=== PATIENT | female | born 1945 | race Caucasian/White ===

== ENCOUNTER 2016-09-08 14:52 | Emergency (ER) | payer MEDICARE ==
[2016-09-08] MEDS ORDERED: GLUCAGON,HUMAN RECOMBINANT 1 MG/ML KIT ONE (15:26)
[2016-09-08] MEDS ORDERED: GLUCOSE LIQUID 30 GM TUBE PO ONE (15:26)
[2016-09-08 15:38] LABS: BASOPHILS 0.2 % (0.0-2.0); EOSINOPHILS# 0.1 X 10^3uL (0.0-0.4); HEMATOCRIT 33.7 % (36.0-48.0); LYMPHOCYTES 19.9 % (20.0-40.0); MEAN CELL VOLUME 80.2 fL (80.0-100.0); MEAN CORPUS. HGB CONCENTRATION 32.7 g/dL (32.0-36.0); MEAN CORPUSCULAR HEMOGLOBIN 26.2 pg (29.0-35.0); MEAN PLATELET VOLUME 6.2 fL (7.4-10.4); MONOCYTES 8.8 % (2.0-10.0); MONOCYTES# 0.4 X 10^3uL (0.2-1.0); NEUTROPHILS 68.1 % (54.0-75.0); NEUTROPHILS# 3.3 X 10^3uL (2.6-6.7); RED CELL DISTRIBUTION WIDTH 23.6 % (11.5-14.5); WHITE BLOOD COUNT 4.9 X 10^3uL (3.9-10.7)
[2016-09-08 15:41] LABS: RED BLOOD COUNT 4.2 X 10^6uL (4.20-6.10)
[2016-09-08 15:50] LABS: A/G RATIO 1.2; ALBUMIN 4.1 g/dL (3.5-5.0); BILIRUBIN, TOTAL 0.5 mg/dL (0.2-1.3); CALCIUM 9.4 mg/dL (8.4-10.2); POTASSIUM 3.3 mmol/L (3.5-5.1); TOTAL PROTEIN 7.5 g/dL (6.3-8.2)
--- NOTE | 2016-09-08 16:40 | ER PHYSICIAN DOCUMENTATION ---
Physician Documentation [facility] Name:Leonor Bro Age:71 yrs Sex:Female :1945 Arrival Date:09/08/2016 Time:14:52 BedTrauma-B Private MD:Max Duran EDJeanaMukesh Disposition: 09/08/16 16:03 Discharged to Home/Self Care. Impression: Insulin Reaction (Hypoglycemia). - Condition is Good. - Discharge Instructions: DIABETES Hypoglycemia Insulin Reaction - DIABETIC INSULIN REACTION. - Medical Reconciliation form form. - Follow up: Max Duran MD; When: 2 - 3 days; Reason: Recheck today's complaints, Continuance of care. - Problem is new. - Symptoms are resolved. - Notes: Decrease Toujeo Insulin to 6 ( SIX ) UNITS EVERY DAY HPI: 09/08 14:55 This 71 yrs old Female presents to ER with complaints of Low Blood Sugar and tl1 altered mental status. 14:55 The patient or guardian reports altered mental status, hypoglycemia, that was tl1 potentially precipitated by Treatment prior to arrival includes: administration of glucagon. Onset: The symptom(s)/episode began/occurred suddenly, just prior to arrival. Associated signs and symptoms: Pertinent positives: confusion, mild combativeness.. Current symptoms: In the emergency department the patient's symptoms have improved, mildly. The patient has experienced similar episodes in the past, multiple times, with the last episode occurring last week, today's symptoms are similar, to when the patient was apparently diagnosed with hypoglycemia.. This is a typical presentation, according to her who has treated her many times for this . She just saw Dr Duran 2 days ago and he advised her to decrease her Toujeo from 8 to 6 units a day, but she did not follow his advise and continues to take 8 units a day in addition to the sliding scale that she follows.. Historical: - Allergies: Morphine; Wheat/glutens; - Home Meds: 1. Glucagon IM 2. Fentanyl Patch Topical 3. toujeo 4. Aspirin Oral 5. TPN- nightly 6. Metoprolol Tartrate Oral 7. levothyroxine oral 8. Novolin R Sub-Q 9. Novolog Sub-Q 10. Reclast IV 11. Moselle Oral - PMHx: edema; atrophic kidney; chronic renal failure; OSTEOPOROSIS; vertebral comp fx; CAD; HYPERTENSION; HIGH CHOLESTEROL; HYPOGLYCEMIA; DIABETES - IDDM; THYROID PROBLEM; - PSHx: power port; HIP SURGERY; APPENDECTOMY; - Ebola Screening: : Patient negative for fever greater than or equal to 101.5 degrees Fahrenheit, and additional compatible Ebola Virus Disease symptoms. Patient denies exposure to infectious person. Patient denies travel to an Ebola-affected area in the 21 days before illness onset. No symptoms or risks identified at this time. . - Immunization history: Flu Vaccine >1 year. - Social history: Smoking status: Patient states was never smoker of tobacco. ROS: 14:55 Constitutional: Negative for body aches, chills, fever, malaise. tl1 14:55 Neck: Negative for stiffness. 14:55 Respiratory: Negative for cough, shortness of breath, sputum production, wheezing. 14:55 Abdomen/GI: Negative for abdominal pain, nausea, vomiting, diarrhea, constipation, abdominal cramps. 14:55 : Negative for urinary symptoms. 14:55 Neuro: Negative for headache, seizure activity, weakness. Exam: 14:55 Constitutional: The patient appears frail, withdrawn, fearful and uncooperative , but tl1 clearly improved in tthe 2-3 minutes since receiving the glucagon, per Kina, the network manager who gave the glucagon and brought her in 14:55 Eyes: Exam is negative for acute changes. 14:55 ENT: Exam is negative for acute changes. 14:55 Neck: ROM/movement: is normal, Lymph nodes: no appreciated lymphadenopathy. 14:55 Chest/axilla: Inspection: normal, she does have a port in the right upper subclavian area which is accessed, and looks good, w/o erythema, swelling, induration of fluctuance.. 14:55 Cardiovascular: Rate: normal, Rhythm: regular, Heart sounds: normal, Edema: is not appreciated, JVD: is not appreciated. 14:55 Respiratory: Respirations: normal, Breath sounds: are normal. 14:55 Abdomen/GI: Inspection: abdomen appears normal, Bowel sounds: normal, Palpation: abdomen is soft and non-tender. 14:55 Back: CVA tenderness, is absent. 14:55 Musculoskeletal/extremity: Exam is negative for acute changes. 14:55 Skin: Exam negative for acute changes. 14:55 Neuro: Orientation: unable to test, initially. After her blood sugar normalized, she was completely oriented, conversant and had returned to her baseline according to her .. Vital Signs: 15:12 Pulse 142 MON; Resp 21; tg 15:15 Temp 97.1(TE); Pain 0/10; tg 15:16 BP 170 / 62 (auto/); tg 15:56 BP 167 / 58 (auto/); tg 15:57 Pulse 97 MON; Resp 24; Pulse Ox 93% ; tg MDM: 15:00 Patient medically screened. tl1 16:30 Differential diagnosis: hypoglycemic episode. Data reviewed: vital signs, nurses notes, tl1 old medical records, lab test result(s), and as a result, I will discharge patient. Data interpreted: monitor and storage bin tender: Pulse oximetry:. Counseling: I had a detailed discussion with the patient and/or guardian regarding: the historical points, exam findings, and any diagnostic results supporting the discharge/admit diagnosis, lab results, the need for outpatient follow up, to return to the emergency department if symptoms worsen or persist or if there are any questions or concerns that arise at home. Medication response: The patient's symptoms have resolved, oral glucose and applesauce. Response to treatment: the patient's symptoms have resolved after treatment. Physician consultation: Max Duran MD was called at 16:40, was contacted at 16:45, regarding patient's condition, outpatient follow-up, in 2-3 days, and will see patient in office. Special discussion: That she should heed the advice of Dr Duran, and that hypoglycemia is a bigger threat to her health and well being than hyperglycemia. Stessed again that she should decrease her Toujeo ot 6 units a day and back off her sliding scale insulin by about 10% for now, and adjust her insulin as needed.. 09/08 15:41 Order name: CBC AUTO DIF, MDIF/RMOR IF IND; Complete Time: 16:02 EDMS 09/08 16:01 Interpretation: WHITE BLOOD COUNT 4.9; HEMOGLOBIN 11.0; HEMATOCRIT 33.7; PLATELET COUNT tl1 247. 09/08 15:52 Order name: COMPREHENSIVE METABOLIC PANEL; Complete Time: 16:02 EDMS 09/08 16:02 Interpretation: SODIUM 137; POTASSIUM 3.3; CHLORIDE 103; CARBON DIOXIDE 25; GLUCOSE tl1 110; BLOOD UREA NITROGEN 41; CREATININE 1.0. 09/08 15:10 Order name: FSBS; Complete Time: 15:18 tl1 09/08 15:40 Order name: FSBS; Complete Time: 16:15 tg Dispensed Medications: 14:59 Drug: Glucose Liquid 20 grams; Route: PO; tg 15:40 Follow up: Response: Marked relief of symptoms tg 15:39 Drug: NS 0.9% 1000 ml; Route: IV; Rate: bolus; Site: right subclavian; Delivery: tg [place] Tubing; 16:18 Follow up: IV Status: Completed infusion; IV Intake: 700ml tg Point of Care Testing: Blood Glucose: 15:02 Blood Glucose: 57 mg/dL; tg 16:15 Blood Glucose: 104 mg/dL; tg Ranges: Critical Glucose Levels:Adult <50 mg/dl or >400 mg/dl <40 mg/dl or >180 mg/dl Signatures: Nate Han RN RN tg Mukesh Hills MD MD tl1
--- NOTE | 2016-09-08 16:40 | ER NURSING DOCUMENTATION ---
Nurse's Notes [facility] Name:Leonor Bro Age:71 yrs Sex:Female :1945 Arrival Date:09/08/2016 Time:14:52 BedTrauma-B Private MD:Max Duran Diagnosis:Insulin Reaction (Hypoglycemia) Presentation: 09/08 14:56 Acuity: JHONATAN 1 tg 15:04 Presenting complaint: EMS states: Pt confused, combative, refusing all care, blood tg sugar 32. Transition of care: patient was not received from another setting of care. 15:04 Method Of Arrival: EMS: 420 tg 16:28 Care prior to arrival: Medication(s) given: Glucagon. tg Triage Assessment: 14:55 General: Appears ill, Behavior is uncooperative. Neuro: Level of Consciousness is tg confused, Oriented to none. Respiratory: Respiratory effort is even, unlabored. Derm: Skin is clammy. Historical: - Allergies: Morphine; Wheat/glutens; - Home Meds: 1. Glucagon IM 2. Fentanyl Patch Topical 3. toujeo 4. Aspirin Oral 5. TPN- nightly 6. Metoprolol Tartrate Oral 7. levothyroxine oral 8. Novolin R Sub-Q 9. Novolog Sub-Q 10. Reclast IV 11. Wallace Oral - PMHx: edema; atrophic kidney; chronic renal failure; OSTEOPOROSIS; vertebral comp fx; CAD; HYPERTENSION; HIGH CHOLESTEROL; HYPOGLYCEMIA; DIABETES - IDDM; THYROID PROBLEM; - PSHx: power port; HIP SURGERY; APPENDECTOMY; - Ebola Screening: : Patient negative for fever greater than or equal to 101.5 degrees Fahrenheit, and additional compatible Ebola Virus Disease symptoms. Patient denies exposure to infectious person. Patient denies travel to an Ebola-affected area in the 21 days before illness onset. No symptoms or risks identified at this time. . - Immunization history: Flu Vaccine >1 year. - Social history: Smoking status: Patient states was never smoker of tobacco. Screenin:41 Infectious Disease Risk Unable to Obtain. Abuse screen: Denies threats or abuse. Denies tg injuries from another. Nutritional screening: No deficits noted. Assessment: 15:50 Reassessment: Patient states feeling better. Patient states symptoms have improved. tg General: Appears in no apparent distress, Behavior is cooperative, pleasant. Pain:. Neuro: Level of Consciousness is awake, alert, Oriented to person, place, time, event. 16:17 Reassessment: Pt arrived with port already accessed (she reports that it is always tg accessed. Per pt, port left accessed, flushed with saline. . Respiratory: No deficits noted. Vital Signs: 15:12 Pulse 142 MON; Resp 21; tg 15:15 Temp 97.1(TE); Pain 0/10; tg 15:16 BP 170 / 62 (auto/); tg 15:56 BP 167 / 58 (auto/); tg 15:57 Pulse 97 MON; Resp 24; Pulse Ox 93% ; tg ED Course: 14:53 Patient arrived in ED. ds 14:53 Max Duran MD is Private Physician. ds 14:56 Nate Han, RN is Primary Nurse. tg 14:56 Triage completed. tg 15:00 Mukesh Hills MD is Attending Physician. tl1 15:42 Valuables Remains with patient. Cardiac Monitoring On for Nurse Monitoring only. Pulse tg Ox - RN Monitoring Only NIBP On - RN Monitoring Only. Diet: Patient given snack. 16:02 Max Duran MD is Referral Physician. tl1 Administered Medications: 14:59 Drug: Glucose Liquid 20 grams; Route: PO; tg 15:40 Follow up: Response: Marked relief of symptoms tg 15:39 Drug: NS 0.9% 1000 ml; Route: IV; Rate: bolus; Site: right subclavian; Delivery: tg [place] Tubing; 16:18 Follow up: IV Status: Completed infusion; IV Intake: 700ml tg Point of Care Testing: Blood Glucose: 15:02 Blood Glucose: 57 mg/dL; tg 16:15 Blood Glucose: 104 mg/dL; tg Ranges: Intake: 16:18 IV: 700ml; Total: 700ml. tg Outcome: 16:03 Discharge ordered by . tl1 16:16 Discharged to home ambulatory, with significant other, with cane. Refuses wheelchair tg 16:16 Condition: stable 16:16 Discharge Assessment: Patient awake, alert and oriented x 3. No cognitive and/or functional deficits noted. Patient verbalized understanding of disposition instructions. 16:16 Instructed on discharge instructions, follow up and referral plans. 16:39 Patient left the ED. tg 09/09 10:00 Discharge F/U Call: Unable to reach: left voicemail: lp 11:48 Discharge F/U Call: Spoke with: patient. Have you made a f/u appointment? yes Overall lp Care on a scale of 1-10 with 10 being the best care, you rate our care as: the rating of 10. Signatures: Nate Han RN RN tg Joanne Martínez RN RN lp Srot, iVckie, Reg Reg Mukesh Ellington MD MD tl1
== END 2016-09-08 16:39 | disposition home or self-care (01) ==
LOC: ER 14:52
DX: E11.649 Type 2 diabetes mellitus with hypoglycemia without coma (principal); R41.0 Disorientation, unspecified; Z79.4 Long term (current) use of insulin; I25.10 Atherosclerotic heart disease of native coronary artery without angina pectoris; I10 Essential (primary) hypertension; Z79.899 Other long term (current) drug therapy; Z79.82 Long term (current) use of aspirin; Z74.3 Need for continuous supervision
CPT/HCPCS: 80053; 85025; 96360; 99283; 99284; A0425; A0427; J1610